=== PATIENT | female | born 1950 | race Caucasian/White ===

== ENCOUNTER 2016-07-15 02:24 | Inpatient (IN) | payer OTHER ==
[2016-07-15] VITALS (13 sets, daily range): BP systolic 99–162; BP diastolic 64–119
[~2016-07-15] VITALS: Ht 170.2 cm; Wt 61.5 kg
[~2016-07-15 02:24] MED LIST: BACTRIM,SEPT1 TABLET PO; CIPRO500 MG PO; DOXYCYCLINE HY100 MG PO; DURAGESIC25 MCG TD; FLAGYL500 MG PO; FLEXERIL10 MG PO; FLOMAX0.4 MG PO; K-DUR20 MEQ PO; LEVAQUIN750 MG PO; LISINOPRIL20 MG PO; LORAZEPAM0.5 MG PO; LYRICA150 MG PO; MEDROL DOSEPAK4 MG PO; MELATONIN500 MCG SL; MOBIC7.5 MG PO; NEURONTIN300 MG PO; OMEPRAZOLE40 M1 PO; PAXIL30 MG PO; PAXIL40 MG PO; PERCOCET 10/1 TABLET PO; PREMARIN0.9 MG PO; SYNTHROID; SYNTHROID,LEVO0.5 MG PO; SYNTHROID50 MCG PO; VITAMIN D34000 UNIT PO; ZOFRAN4 MG PO
[2016-07-15 03:31] LABS: HEMATOCRIT 44.8 % (36.0-46.0); MCH 32.1 PG (29.0-34.0); MCHC 33.5 G/DL (30.0-36.0); MCV 95.9 FL (83-99); MEAN PLAT.VOLUME 11.1 uM^3 (9.5-12.4); PLATELET COUNT 218 K/uL (156-360); RBC DIS.WIDTH-CV 13.5 % (11.8-14.6); RBC DIS.WIDTH-SD 45.9 % (39-53); RED BLOOD COUNT 4.67 M/uL (3.80-5.20)
[2016-07-15 03:42] LABS: CHLORIDE 108 mEq/L (99-109)
[2016-07-15 03:43] LABS: SODIUM 145 mEq/L (136-147)
[2016-07-15 03:45] LABS: GLUCOSE 90 mg/dL (70-99)
[2016-07-15 03:46] LABS: ANION GAP 12 MEQ/L (2-14)
[2016-07-15 03:47] LABS: TOTAL BILIRUBIN 0.2 mg/dL (0.0-1.0)
[2016-07-15 03:48] LABS: ALKALINE PHOSPHATASE 78 IU/L (3-129); GFR ESTIMATE (CALCULATED) > 59 mL/min/
[2016-07-15 03:50] LABS: UREA NITROGEN (BUN) 17 mg/dL (9-23)
[2016-07-15 03:50] LABS: BASE EXCESS -1.3 mEq/L (-3 to +3); BICARBONATE 25.7 mEq/L (22-26); CARBOXY HGB 4.7 % (0-5); COMMENTS - BLOOD GASES C+; DEVICE VENT; FI02 50 %; MECHANICAL RATE 14 resp/min; MODE A/C; PCO2 51 mm Hg (35-45); PEEP 5 CM/H20; PO2 173 mm Hg (80-100); SITE LR; TIDAL VOLUME 500 ML; TOTAL RESP RATE 14 resp/min; pH 7.31 (7.35-7.45)
[2016-07-15 08:19] LABS: METH RESISTANT S AUREUS PCR NEGATIVE (NEGATIVE)
[2016-07-15 08:20] LABS: PROBE CHECK PASS; SPECIMEN PROCESSING CONTROL PASS
[2016-07-15 09:24] LABS: MAGNESIUM 2.3 mg/dL (1.3-2.7)
[2016-07-16] VITALS (14 sets, daily range): BP systolic 94–163; BP diastolic 53–92
[2016-07-16 05:49] LABS: EOSINOPHIL (%) 0 % (0-5); HEMATOCRIT 43.1 % (36.0-46.0); IMMATURE GRANULOCYTE (%) 0.1 % (0.0-0.7); LYMPHOCYTE COUNT 0.7 K/uL (1.0-2.8); MCH 31.7 PG (29.0-34.0); MCHC 33.4 G/DL (30.0-36.0); MCV 94.9 FL (83-99); MEAN PLAT.VOLUME 11.3 uM^3 (9.5-12.4); MONOCYTE COUNT 0.5 K/uL (0-0.8); NEUTROPHIL (%) 86.5 % (45-76); NEUTROPHIL COUNT 7.7 K/uL (1.8-6.4); PLATELET COUNT 211 K/uL (156-360); RBC DIS.WIDTH-CV 13.8 % (11.8-14.6); RBC DIS.WIDTH-SD 47.9 % (39-53); RED BLOOD COUNT 4.54 M/uL (3.80-5.20); WHITE BLOOD COUNT 8.8 K/uL (4.1-10.2)
[2016-07-16 06:17] LABS: ANION GAP 10 MEQ/L (2-14); CHLORIDE 107 MEQ/L (99-109); GFR ESTIMATE (CALCULATED) > 59 mL/min/; MAGNESIUM 1.9 mg/dl (1.3-2.7); POTASSIUM 3.8 MEQ/L (3.7-5.4); SAMPLE HEMOLYSIS CHECK 0; SAMPLE ICTERIC CHECK 0; SAMPLE LIPEMIA CHECK 0; SODIUM 143 MEQ/L (136-147); UREA NITROGEN (BUN) 12 mg/dL (9-23)
[2016-07-16 06:31] LABS: GLUCOSE 162 mg/dL (70-99)
[2016-07-16] MEDS ORDERED: LISINOPRIL30 MG PO (15:15)
[2016-07-16] MEDS ORDERED: VITAMIN B12 100MCG PO (15:18)
[2016-07-17 02:45] VITALS: BP 125/70
[2016-07-17 07:07] VITALS: BP 97/58
[2016-07-17 07:41] LABS: ANION GAP 9 MEQ/L (2-14); CHLORIDE 107 MEQ/L (99-109); GFR ESTIMATE (CALCULATED) > 59 mL/min/; SAMPLE HEMOLYSIS CHECK 2; SAMPLE ICTERIC CHECK 0; SAMPLE LIPEMIA CHECK 0; SODIUM 141 MEQ/L (136-147); UREA NITROGEN (BUN) 14 mg/dL (9-23)
[2016-07-17 07:48] LABS: GLUCOSE 97 mg/dL (70-99); MAGNESIUM 2.1 mg/dl (1.3-2.7); POTASSIUM 4.4 MEQ/L (3.7-5.4)
[2016-07-17 08:46] LABS: EOSINOPHIL (%) 0.1 % (0-5); IMMATURE GRANULOCYTE (%) 0.2 % (0.0-0.7); LYMPHOCYTE COUNT 1.7 K/uL (1.0-2.8); MCH 31.2 PG (29.0-34.0); MCHC 32.8 G/DL (30.0-36.0); MEAN PLAT.VOLUME 11.4 uM^3 (9.5-12.4); MONOCYTE (%) 7.1 % (3-12); MONOCYTE COUNT 0.6 K/uL (0-0.8); NEUTROPHIL (%) 71.2 % (45-76); NEUTROPHIL COUNT 5.7 K/uL (1.8-6.4); PLATELET COUNT 178 K/uL (156-360); RBC DIS.WIDTH-CV 13.7 % (11.8-14.6); RBC DIS.WIDTH-SD 47.5 % (39-53); RED BLOOD COUNT 4.84 M/uL (3.80-5.20); WHITE BLOOD COUNT 8.1 K/uL (4.1-10.2)
[2016-07-17 10:54] VITALS: BP 120/75
[2016-07-17 15:37] VITALS: BP 121/83
[2016-07-17 18:56] VITALS: BP 124/78
[2016-07-18 00:05] VITALS: BP 119/74
[2016-07-18 03:19] VITALS: BP 114/67
[2016-07-18 07:02] LABS: EOSINOPHIL (%) 0.2 % (0-5); HEMATOCRIT 43.9 % (36.0-46.0); IMMATURE GRANULOCYTE (%) 0.3 % (0.0-0.7); INSTRUMENT ABS NEUTROPHIL CT 3.7 K/uL; LYMPHOCYTE COUNT 1.8 K/uL (1.0-2.8); MCH 31.2 PG (29.0-34.0); MCV 94.4 FL (83-99); MEAN PLAT.VOLUME 11.3 uM^3 (9.5-12.4); MONOCYTE (%) 12.1 % (3-12); MONOCYTE COUNT 0.8 K/uL (0-0.8); NEUTROPHIL (%) 58.1 % (45-76); NEUTROPHIL COUNT 3.7 K/uL (1.8-6.4); PLATELET COUNT 164 K/uL (156-360); RBC DIS.WIDTH-CV 13.2 % (11.8-14.6); RBC DIS.WIDTH-SD 46.4 % (39-53); RED BLOOD COUNT 4.65 M/uL (3.80-5.20); WHITE BLOOD COUNT 6.3 K/uL (4.1-10.2)
[2016-07-18 07:17] VITALS: BP 111/64
[2016-07-18 08:10] LABS: ANION GAP 9 MEQ/L (2-14); CHLORIDE 106 MEQ/L (99-109); GFR ESTIMATE (CALCULATED) > 59 mL/min/; GLUCOSE 96 mg/dL (70-99); SAMPLE HEMOLYSIS CHECK 1; SAMPLE ICTERIC CHECK 0; SAMPLE LIPEMIA CHECK 0; SODIUM 141 MEQ/L (136-147); UREA NITROGEN (BUN) 15 mg/dL (9-23)
[2016-07-18 08:30] LABS: MAGNESIUM 1.9 mg/dl (1.3-2.7); POTASSIUM 3.5 MEQ/L (3.7-5.4)
[2016-07-18] MEDS ORDERED: PREDNISONE10 MG PO (09:39)
[2016-07-18] MEDS ORDERED: AMLODIPINE BESYL5 MG PO (09:39)
== END 2016-07-18 12:40 | disposition home or self-care (01) | DRG 916 ==
LOC: EME 02:24 → 5EAST 06:19 → EDOF 06:19 → 4WEST 06:47 → 5EAST 07-16 17:14
PROVIDERS: Emergency Medicine; Internal Medicine; Internal Medicine Nephrology
PROC: 0BH17EZ Insertion of Endotracheal Airway into Trachea, Via Natural or Artificial Opening (ICD-10-PCS; principal; 2016-07-15)
PROC: 5A1945Z Respiratory Ventilation, 24-96 Consecutive Hours (ICD-10-PCS; principal; 2016-07-15)
DX: T78.3XXA Angioneurotic edema, initial encounter (principal); J98.8 Other specified respiratory disorders; E83.42 Hypomagnesemia; I10 Essential (primary) hypertension; F32.9 Major depressive disorder, single episode, unspecified; E03.9 Hypothyroidism, unspecified; G89.29 Other chronic pain; M54.5 Low back pain; K58.9 Irritable bowel syndrome, unspecified; F17.210 Nicotine dependence, cigarettes, uncomplicated; Z88.5 Allergy status to narcotic agent
CPT/HCPCS: 36600; 70491; 71010; 80048; 80053; 82803; 83735; 84100; 85025; 85027; 87040; 87070; 87076; 87205; 87641; 87801; 94002; 94003; 99202; 99281; 99285; J0330; J1200; J1644; J2060; J2250; J2704; J2920; J2930; J3010; J3475; J7030; J7120; J7512; S0028